=== PATIENT | male | born 1965 ===

== ENCOUNTER 2017-07-01 04:58 | Outpatient (CLI) | payer MEDICARE, MEDICAID | END 2017-07-01 23:59 | disposition home or self-care (01) | LOC: DIABETIC 04:58 | PROVIDERS: ATTEND Family Medicine | DX: E11.9 Type 2 diabetes mellitus without complications (principal) | CPT/HCPCS: G0108 ==

== ENCOUNTER 2017-09-30 04:55 | Outpatient (CLI) | payer MEDICARE, MEDICAID | END 2017-09-30 23:59 | disposition home or self-care (01) | LOC: DIABETIC 04:55 | PROVIDERS: ATTEND Family Medicine | DX: E11.9 Type 2 diabetes mellitus without complications (principal) | CPT/HCPCS: G0108 ==

== ENCOUNTER 2018-04-10 00:55 | Outpatient (CLI) | payer MEDICARE, MEDICAID | END 2018-04-10 23:59 | disposition home or self-care (01) | LOC: DIABETIC 00:55 | PROVIDERS: ATTEND Family Medicine | DX: E11.9 Type 2 diabetes mellitus without complications (principal); Z79.84 Long term (current) use of oral hypoglycemic drugs | CPT/HCPCS: G0108 ==

== ENCOUNTER 2018-07-08 04:24 | Outpatient (CLI) | payer MEDICARE, MEDICAID | END 2018-07-08 23:59 | disposition home or self-care (01) | LOC: DIABETIC 04:24 | PROVIDERS: ATTEND Family Medicine | DX: E11.9 Type 2 diabetes mellitus without complications (principal); Z79.84 Long term (current) use of oral hypoglycemic drugs | CPT/HCPCS: G0108 ==

== ENCOUNTER 2018-10-07 04:48 | Outpatient (CLI) | payer MEDICARE, MEDICAID | END 2018-10-07 23:59 | disposition home or self-care (01) | LOC: DIABETIC 04:48 | PROVIDERS: ATTEND Family Medicine | DX: E11.9 Type 2 diabetes mellitus without complications (principal); Z79.84 Long term (current) use of oral hypoglycemic drugs | CPT/HCPCS: G0108 ==

== ENCOUNTER 2019-01-05 04:49 | Outpatient (CLI) | payer MEDICARE, MEDICAID | END 2019-01-05 23:59 | disposition home or self-care (01) | LOC: DIABETIC 04:49 | PROVIDERS: ATTEND Family Medicine | DX: E11.9 Type 2 diabetes mellitus without complications (principal); Z71.3 Dietary counseling and surveillance | CPT/HCPCS: G0108 ==

== ENCOUNTER 2019-07-07 04:07 | Outpatient (CLI) | payer MEDICARE, MEDICAID | END 2019-07-07 23:59 | disposition home or self-care (01) | LOC: DIABETIC 04:07 | PROVIDERS: ATTEND Family Medicine | DX: E11.9 Type 2 diabetes mellitus without complications (principal); Z79.84 Long term (current) use of oral hypoglycemic drugs | CPT/HCPCS: G0108 ==